=== PATIENT | female | born 1970 | race Hispanic/Latino ===

== ENCOUNTER 2018-03-21 15:51 | Emergency (ER) | payer OTHER ==
[~2018-03-21] VITALS: Ht 165.1 cm; Wt 95.7 kg
[~2018-03-21 15:51] MED LIST: B/P MED; JANUMET 50-1,01 EACH
--- NOTE | 2018-03-21 18:22 | Diagnostic Imaging Report ---
Examination: CT head without contrast Clinical Indication: Headache. Dizziness. Right occipital pressure. Technique: Transaxial noncontrast images from the skull base through the vertex were obtained. Sagittal and coronal reformatted images were done. Dose modulation, iterative reconstruction, and/or weight based adjustment of the mA/kV was utilized to reduce the radiation dose to as low as reasonably achievable. Comparison: None. Findings: Scalp: No abnormalities. Bones: Intact. No fractures. No blastic or lytic lesions. Brain sulci: Appropriate for patient's age. Ventricles: Normal in size and configuration. No hydrocephalus. Extra-axial space: No abnormalities. Parenchyma: No abnormal densities. No masses, hemorrhage, or acute or chronic cortical based vascular insults. Suprasellar region: No abnormalities. Craniocervical junction: The foramen magnum is patent. No Chiari one malformation. Impression: No intracranial abnormality. Signed by: Dr. Siomara Torres M.D. on 03/21/2018 6:19 PM
[2018-03-21] MEDS ORDERED: HYDROCODONE/APAP 5MG-325MG TAB PO ONE (19:15)
== END 2018-03-21 20:07 | disposition home or self-care (01) ==
LOC: ER 15:51
DX: G43.719 Chronic migraine without aura, intractable, without status migrainosus (principal)
CPT/HCPCS: 70450; 99283

== ENCOUNTER 2018-10-10 18:07 | Emergency (ER) | payer OTHER ==
[~2018-10-10] VITALS: Ht 165.1 cm; Wt 95.7 kg
--- OUTSIDE RECORDS SUMMARY | 2018-10-10 18:09 | XMS REPORT | Continuity of Care Document ---
Author Author [facility] Interface Address Unknown Phone Unavailable Problems Problem Status Onset Date Classification Date Reported Comments Source Medications Medication Details Route Status Patient Instructions Ordering Provider Order Date Source B/P Med Active [facility] Sitagliptin Phos/Metformin Hcl (Janumet 50-1,000 Mg Tablet) 1 Each Tablet Active [facility] Allergies, Adverse Reactions, Alerts Substance Category Reaction Severity Reaction type Status Date Reported Comments Source Penicillin Unknown Allergy to Substance Active 03/21/2018 [facility] Sulfa (Sulfonamide Antibiotics) Unknown Allergy to Substance Active 03/21/2018 [facility] Lisinopril Unknown Allergy to Substance Active 03/21/2018 [facility] Hydrochlorothiazide Unknown Allergy to Substance Active 03/21/2018 [facility] Immunizations Immunization Date Given Site Status Last Updated Comments Source Results Order Name Results Value Reference Range Date Interpretation Comments Source Vital Signs Vital Sign Value Date Comments Source Encounters Location Location Details Encounter Type Encounter Number Reason For Visit Attending Provider ADM Date DC Date Status Source Departed Emergency Room [id number] JORDAN MARTE MD 03/21/2018 03/21/2018 [facility] Procedures Procedure Code Date Perfomer Comments Source Computed tomography of brain without radiopaque contrast [id number] 03/21/2018 ESTUARDO [facility]
--- OUTSIDE RECORDS SUMMARY | 2018-10-10 18:09 | XMS REPORT ---
Author Author [facility] Address Unknown Phone Unavailable Care Team Providers Care Jewel Waxer Name Role Phone Rd MARTE Unavailable Unavailable BRIJESH HORN Unavailable Unavailable Problems This patient has no known problems. Allergies, Adverse Reactions, Alerts This patient has no known allergies or adverse reactions. Medications This patient has no known medications. Encounters Start Date/Time End Date/Time Encounter Type Admission Type Attending Clinicians Care Facility Care Department Encounter ID 2017-03-12 15:23:00 2017-03-12 23:59:00 Outpatient C BRIJESH HORN [facility] [id number] Results Test Description Test Time Test Comments Text Results Atomic Results Result Comments CT BRAIN WO 2018-03-21 18:18:00 [facility] [address] [place] [address] Patient Name: DARWIN KRISHNAMURTHY MR #: [id number] : 1970 Age/Sex: 47/F Req #: [id number] Adm Physician: Ordered by: JORDAN MARTE MD Report #: [id number] Location: ER Room/Bed: Procedure: [id number] CT/CT BRAIN WO Exam Date: Exam Time: REPORT STATUS: Signed Examination: CT head without contrast Clinical Indication: Headache. Dizziness. Right occipital pressure. Technique: Transaxial noncontrast images from the skull base through the vertex were obtained. Sagittal and coronal reformatted images were done. Dose modulation, iterative reconstruction, and/or weight based adjustment of the mA/kV was utilized to reduce the radiation dose to as low as reasonably achievable. Comparison: None. Findings: Scalp: No abnormalities. Bones: Intact. No fractures. No blastic or lytic lesions. Brain sulci: Appropriate for patient's age. Ventricles: Normal in size and configuration. No hydrocephalus. Extra-axial space: No abnormalities. Parenchyma: No abnormal densities. No masses, hemorrhage, or acute or chronic cortical based vascular insults. Suprasellar region: No abnormalities. Craniocervical junction: The foramen magnum is patent. No Chiari one malformation. Impression: No intracranial abnormality. Signed by: Dr. Siomara Torres M.D. on 03/21/2018 6:19 PM Dictated By: SIOMARA TELLO MD 18 Transcribed By: NAVEED on 03/21/181818 COPY TO: JORDAN MARTE MD
--- NOTE | 2018-10-10 19:44 | NUR ---
REPORT TO DONA
--- NOTE | 2018-10-10 20:08 | Diagnostic Imaging Report ---
EXAMINATION: CXR 2 VIEW - HOPD INDICATION: High blood pressure. COMPARISON: None FINDINGS: TUBES and LINES: None. LUNGS: Lungs are well inflated. Lungs are clear. There is no evidence of pneumonia or pulmonary edema. PLEURA: No pleural effusion or pneumothorax. HEART AND MEDIASTINUM: The cardiomediastinal silhouette is unremarkable. BONES AND SOFT TISSUES: No acute osseous lesion. Soft tissues are unremarkable. UPPER ABDOMEN: No free air under the diaphragm. IMPRESSION: No acute thoracic abnormality. Signed by: Dr. Rajinder Blair M.D. on 10/10/2018 8:04 PM
[2018-10-10] MEDS ORDERED: CLONIDINE HCL 0.1 MG TAB PO ONE (20:15)
== END 2018-10-10 21:37 | disposition home or self-care (01) ==
LOC: FSED 18:07
DX: R07.89 Other chest pain (principal); I10 Essential (primary) hypertension
CPT/HCPCS: 71046; 80053; 81025; 82553; 84484; 85025; 93005; 99283

== ENCOUNTER 2020-05-20 16:36 | Emergency (ER) | payer OTHER ==
[~2020-05-20] VITALS: Ht 165.1 cm; Wt 112.9 kg
--- NOTE | 2020-05-20 18:06 | Emergency Department Note ---
History of Present Illnes History of Present Illness Chief Complaint: COVID PUI History of Present Illness This is a 50 year old female with recent diagnosis of Covid 19 infection less than 1 week. Patient with cough, fever, dyspnea on exertion. Patient on arrival was 100% Historian: Patient Arrival Mode: Car Onset (how long ago): day(s) (3) Location: cough Quality: dry Radiation: Reports non-radiation Severity: mild, moderate Onset quality: gradual Duration (how long): day(s) (3) Timing of current episode: constant Progression: worsening Context: Reports recent illness (covid +) Relieving factors: none Exacerbating factors: none Associated symptoms: Reports cough, Reports fever/chills, Reports malaise, Reports weakness Past Medical/Family History Physician Review I have reviewed the patient's past medical and family history. Any updates have been documented here. Past Medical History Recent Fever: No Clinical Suspicion of Infectio: No New/Unexplained Change in Ment: No Past Medical History: Hypertension, Diabetes, Migraines, Anxiety, Hyperlipedemia Other Medical History: OBESITY Past Surgical History: T&A, Bariatric Surgery Other Surgery: Gastric sleeve Other Last Tetanus: Unknown Review of Systems Review of Systems Constitutional: Reports as per HPI EENTM: Reports no symptoms Cardiovascular: Reports no symptoms Respiratory: Reports as per HPI Gastrointestinal: Reports no symptoms Genitourinary: Reports no symptoms Musculoskeletal: Reports no symptoms Integumentary: Reports no symptoms Neurological: Reports no symptoms Psychological: Reports no symptoms Endocrine: Reports no symptoms Hematological/Lymphatic: Reports no symptoms Physical Exam Related Data Allergies: Coded Allergies: Penicillins (Verified Allergy, Unknown, 03/21/18) Sulfa (Sulfonamide Antibiotics) (Verified Allergy, Unknown, 03/21/18) hydrochlorothiazide (Verified Allergy, Unknown, 03/21/18) hydrocortisone (Verified Allergy, Unknown, 10/10/18) lisinopril (Verified Allergy, Unknown, 03/21/18) Triage Vital Signs Vital Signs Date Time Temp Pulse Resp B/P (MAP) Pulse Ox O2 Delivery O2 Flow Rate FiO2 05/20/20 16:59 97.7 80 22 138/59 100 Room Air Vital signs reviewed: Yes Physical Exam CONSTITUTIONAL Constitutional: Present well-developed, Present well-nourished HENT HENT: Present normocephalic, Present atraumatic, Present oropharynx clear/moist, Present nose normal HENT L/R: Present left ext ear normal, Present right ext ear normal EYES Eyes: Reports PERRL, Reports conjunctivae normal NECK Neck: Present ROM normal PULMONARY Pulmonary: Present effort normal, Present breath sounds normal CARDIOVASCULAR Cardiovascular: Present regular rhythm, Present heart sounds normal, Present capillary refill normal, Present normal rate GASTROINTESTINAL Abdominal: Present soft, Present nontender, Present bowel sounds normal GENITOURINARY Genitourinary: Present exam deferred SKIN Skin: Present warm, Present dry MUSCULOSKELETAL Musculoskeletal: Present ROM normal NEUROLOGICAL Neurological: Present alert, Present oriented x 3, Present no gross motor or sensory deficits PSYCHOLOGICAL Psychological: Present mood/affect normal, Present judgement normal Assessment & Plan Medical Decision Making MDM Patient is a COVID positive patient, no pneumonia, no hypoxia, to continue watchful waiting. Patient is well appearing with normal vital signs. Warnings given all results explained. Assessment & Plan Final Impression: (1) COVID-19 (2) Cough Depart Disposition: HOME, SELF-CARE Last Vital Signs Date Time Temp Pulse Resp B/P (MAP) Pulse Ox O2 Delivery O2 Flow Rate FiO2 05/20/20 16:59 97.7 80 22 138/59 100 Room Air Home Meds Reported Medications [B/P Med] No Conflict Check 07/05/12 Sitagliptin Phos/Metformin Hcl (JANUMET 50-1,000 MG TABLET) 1 Each Tablet 07/05/12 KIKI MEIER MD May 20, 2020 18:06
--- OUTSIDE RECORDS SUMMARY | 2020-05-20 18:26 | XMS REPORT | Continuity of Care Document ---
Author Author [facility] t Organization [facility] Address [address] [place] [address] Phone Unavailable Care Team Providers Care Mri Assistant Name Role Phone NO, PCP PCP Unavailable KRYSTA, Ian MENESES Attphys Unavailable Rd MARTE ORTEGA Attphys Unavailable JUSTINA, BRIJESH Attphys Unavailable JUSTINA, BRIJESH Admphys Unavailable Payers Payer Name Policy Type Policy Number Effective Date Expiration Date Ceasar Boyd o [id number] 2017 00:00:00 [facility] Problems This patient has no known problems. Allergies, Adverse Reactions, Alerts Allergy Name Allergy Type Status Severity Reaction(s) Onset Date Inacti ve Date Treating Clinician Comments Source Hydrocortisone Allergy to Substance Active 2018-10-10 00:00 :00 [facility] Penicillin Allergy to Substance Active 2018-03-21 00:00:00 [facility] Sulfa (Sulfonamide Antibiotics) Allergy to Substance Active 2018-03-21 00:00:00 [facility] Lisinopril Allergy to Substance Active 2018-03-21 00:00:00 [facility] Hydrochlorothiazide Allergy to Substance Active 2018-03-21 00:00:00 [facility] Medications Ordered Medication Name Filled Medication Name Start Date Stop Da te Current Medication? Ordering Clinician Indication Dosage Frequency Signature (SIG) Comments Components Source B/P Med B/P Med Yes [facility] Sitagliptin Phos/Metformin Hcl (Janumet 50-1,000 Mg Ta blet) 1 Each Tablet Sitagliptin Phos/Metformin Hcl (Janumet 50-1,000 Mg Tablet) 1 Each Tablet Yes [facility] Procedures Procedure Date / Time Performed Performing Clinician Sour e Computed tomography of brain without radiopaque contrast 201 02-04-24 00:00:00 JORDAN MARTE [facility] Encounters Start Date/Time End Date/Time Encounter Type Admission Type [facility] Care Department Encounter ID Source 2018-10-10 18:07:00 2018-10-10 21:37:00 Departed Emergency Room 1 ZAIRA CHAPARRO [facility] [id number] [facility] 2018-03-21 15:51:00 2018-03-21 20:07:00 Departed Emergency Room 1 ESTUARDO ORTEGA [facility] [id number] [facility] 2017-03-12 15:23:00 2017-03-12 23:59:00 Outpatient C BRIJESH NAVARRO [facility] [id number] [facility] Results Test Description Test Time Test Comments Results Result Comments Source CXR 2 VIEW - HOPD 2018-10-10 20:02:00 [place] [address] Patient Name: DARWIN KRISHNAMURTHY MR #: [id number] : 1970 Age/Sex: 48/F Req #: [id number] Adm Physician: Ordered by: ZAIRA CHAPARRO MD Report #: [id number] Location: [facility] Room/Bed: Procedure: [id number] HOPD/CXR 2 VIEW - HOPD Exam Date: Exam Time: REPORT STATUS: Signed EXAMINATION: CXR 2 VIEW - HOPD INDICATION: High blood pressure. COMPARISON: None FINDINGS: TUBES and LINES: None. LUNGS: Lungs are well inflated. Lungs are clear. There is no evidence of pneumonia or pulmonary edema. PLEURA: No pleural effusion or pneumothorax. HEART AND MEDIASTINUM: The cardiomediastinal silhouette is unremarkable. BONES AND SOFT TISSUES: No acute osseous lesion. Soft tissues are unremarkable. UPPER ABDOMEN: No free air under the diaphragm. IMPRESSION: No acute thoracic abnormality. Signed by: Dr. Tri James M.D. on 10/10/2018 8:04 PM Dictated By: TRI JAMES MD 03 Transcribed By: NAVEED on 10/10/182003 COPY TO: ZAIRA CHAPARRO MD CT BRAIN WO 2018-03-21 18:18:00 [place] [address] Patient Name: DARWIN KRISHNAMURTHY MR #: [id number] : 1970 Age/Sex: 47/F Req #: [id number] Adm Physician: Ordered by: JORDAN MARTE MD Report #: [id number] Location: ER Room/Bed: Procedure: [id number] CT/CT BRAIN WO Exam Date: Exam Time: [...]
--- NOTE | 2020-05-20 18:36 | Diagnostic Imaging Report ---
EXAMINATION: CHEST SINGLE (PORTABLE) COMPARISON: Chest x-ray 10/10/2018 INDICATION: ^Y ^covid ^[id number] ^[id number] DISCUSSION: Frontal view of the chest obtained at 1735 hours. HEART AND MEDIASTINUM: The cardiomediastinal silhouette is unremarkable. LINES: None. LUNGS/PLEURA: The lungs are well inflated and clear. No pneumonia or pulmonary edema. No pleural effusion or pneumothorax. BONES AND SOFT TISSUES: No focal osseous lesion. The soft tissues are normal. IMPRESSION: No acute cardiopulmonary process. Signed by: Dr. Nereida Saucedo MD on 05/20/2020 6:33 PM
== END 2020-05-20 19:13 | disposition home or self-care (01) ==
LOC: ER 18:22
DX: U07.1 COVID-19 (principal); R05 Cough; I10 Essential (primary) hypertension; E11.9 Type 2 diabetes mellitus without complications; E78.5 Hyperlipidemia, unspecified; F41.9 Anxiety disorder, unspecified; E66.9 Obesity, unspecified; Z98.84 Bariatric surgery status
CPT/HCPCS: 71045; 99282

== ENCOUNTER 2022-02-13 08:35 | Emergency (ER) | payer OTHER ==
[~2022-02-13] VITALS: Ht 165.1 cm; Wt 93.0 kg
[2022-02-13] MEDS ORDERED: SODIUM CHLORIDE 0.9% 1000ML 1,000 ML IV STA (09:08)
[2022-02-13] MEDS ORDERED: ONDANSETRON HCL INJ 2MG/ML 2ML 2 MG/ML VIAL IV STA (09:08)
[2022-02-13] MEDS ORDERED: KETOROLAC TROMETHAMINE 30 MG/ML VIAL IV STA (09:08)
[2022-02-13 09:40] LABS: BASOPHILS # (AUTO) 0.1 (0.0-0.1); BASOPHILS % 0.9 % (0.0-1.0); EOSINOPHILS # (AUTO) 0.2 (0.0-0.4); EOSINOPHILS % 2.2 % (0.0-6.0); HEMATOCRIT 39.2 % (34.2-44.1); HEMOGLOBIN 13.3 g/dL (12.0-16.0); LYMPHOCYTES # (AUTO) 1.5 (1.0-3.2); MEAN CORPUSCULAR HEMOGLOBIN 28.4 pg (28-32); MEAN CORPUSCULAR HGB CONC 33.9 g/dL (31-35); MEAN CORPUSCULAR VOLUME 83.6 fL (81-99); MONOCYTES # (AUTO) 0.4 (0.2-0.8); MONOCYTES % 6.1 % (4.4-11.3); NEUTROPHILS # (AUTO) 4.6 (2.1-6.9); NEUTROPHILS % 68.5 % (38.7-80.0); PLATELET COUNT 235 x10e3/uL (140-360); RED BLOOD COUNT 4.69 x10e6/uL (3.6-5.1); RED CELL DISTRIBUTION WIDTH 12.8 % (11.7-14.4)
[2022-02-13 09:49] LABS: INR 0.97; PROTHROMBIN TIME 13.8 seconds (11.9-14.5)
[2022-02-13 09:57] LABS: PARTIAL THROMBOPLASTIN TIME 31.5 seconds (23.8-35.5)
[2022-02-13 09:59] LABS: CLARITY,URINE CLEAR (CLEAR); COLOR,URINE YELLOW (YELLOW); KETONES,URINE NEGATIVE (NEGATIVE); LEUKOCYTE ESTERASE ,URINE NEGATIVE (NEGATIVE); NITRITE,URINE NEGATIVE (NEGATIVE); PROTEIN,URINE DIPSTICK NEGATIVE (NEGATIVE); URINE UROBILINOGEN 0.2 mg/dL (0.2 - 1)
[2022-02-13 10:09] LABS: BACTERIA,URINE MODERATE /HPF; EPITHELIAL CELLS,URINE MODERATE /LPF; RBC,URINE 0-5 /HPF (0-5); TRANSITIONAL EPI CELLS,URINE FEW; WBC,URINE (MAN) 0-5 /HPF (0-5)
[2022-02-13 10:10] LABS: ALBUMIN 3.4 g/dL (3.5-5.0); ALBUMIN/GLOBULIN RATIO 0.8 (0.8-2.0); ANION GAP 14.4 mmol/L (8-16); CREATININE, SERUM 0.63 mg/dL (0.57-1.11); POTASSIUM 3.4 mmol/L (3.5-5.1)
[2022-02-13 12:14] VITALS: BP 121/59
== END 2022-02-13 11:57 | disposition home or self-care (01) ==
LOC: ER 08:39
DX: R10.32 Left lower quadrant pain (principal); K57.32 Diverticulitis of large intestine without perforation or abscess without bleeding; I10 Essential (primary) hypertension; E11.9 Type 2 diabetes mellitus without complications; E78.5 Hyperlipidemia, unspecified; F41.9 Anxiety disorder, unspecified; E66.9 Obesity, unspecified; Z98.84 Bariatric surgery status
CPT/HCPCS: 36415; 74176; 80053; 81001; 83735; 85025; 85610; 85730; 87086; 99284; J1885; J7030; J2405